=== PATIENT | female | born 1955 | race Hispanic/Latino ===

== ENCOUNTER 2018-06-16 08:43 | Outpatient (CLI) | payer BC ==
--- NOTE | 2018-06-16 11:03 | Mammography Report ---
RIGHT DIGITAL DIAGNOSTIC MAMMOGRAM: 06/16/18 08:43:00 CLINICAL: For clip placement immediately status post stereotactic biopsy of calcifications. COMPARISON:[facility] FINDINGS: A biopsy clip is now identified far posterior at the site of previously identified calcifications. No apparent calcifications remain. IMPRESSION: Successful stereotactic biopsy with removal of calcifications and concordant clip deployment. BI-RADS CATEGORY: 4--Suspicious Pathology pending.
--- NOTE | 2018-06-16 12:31 | Mammography Report ---
STEREOTACTIC VACUUM ASSISTED BIOPSY WITH CLIP PLACEMENT RIGHT BREAST: 06/16/18 08:43:00 CLINICAL: Clustered calcifications and a previous failed attempt at stereotactic biopsy. COMPARISON:Recent [facility] [place] mammogram FINDINGS: Consent for the procedure was obtained. The cluster of far posterior central calcifications was targeted with stereotactic guidance. The skin was prepped with Betadine and anesthetized with 1% lidocaine. 2% lidocaine with epinephrine was injected for deeper anesthesia. 8 gauge Mammotome biopsy was performed from a CC from below approach through a small dermatotomy. Prefire and post-fire images demonstrated satisfactory positioning of the probe. Samples were obtained around the clock face. A specimen radiograph confirmed satisfactory sampling with removal of the cluster of calcifications. A clip was placed at the biopsy site and satisfactory clip deployment was confirmed with an image. The probe was removed and hemostasis was achieved with mild pressure. A sterile dressing was applied. The patient tolerated the procedure well and there were no apparent complications. Two view mammogram demonstrated removal of the calcifications and concordant clip deployment. IMPRESSION: Uncomplicated stereotactic biopsy with clip placement right breast.
== END 2018-06-16 08:44 | disposition home or self-care (01) ==
LOC: SPVWC 08:43
PROVIDERS: ATTEND Surgery
DX: D05.01 Lobular carcinoma in situ of right breast (principal); R92.0 Mammographic microcalcification found on diagnostic imaging of breast
CPT/HCPCS: 19081; 77065; 88305; 88342; 88361; A4648

== ENCOUNTER 2018-07-15 13:45 | Outpatient (CLI) | payer BC ==
--- NOTE | 2018-07-16 11:55 | Magnetic Resonance Report ---
BILATERAL BREAST MRI WITHOUT AND WITH CONTRAST: 07/15/18 13:45:00 CLINICAL: Benign mammary dysplasia of right breast. Status post stereotactic biopsy of the right breast on 06/16/18. 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 COMPARISON:06/16/18 right mammogram. TECHNIQUE: Axial 1.0-mm T1 without, axial high resolution 2.0-mm T2 and axial 1.0-mm dynamic Vibrant high-resolution postcontrast T1 fat saturation sequences on a 1.5 Dahlia magnet. The examination was performed with an 8 channel dedicated [place] breast coil. Post processing with CAD and subtraction was performed on an [employer] workstation. 18.0 cc of Multihance was injected without incident for the contrast portion of the exam. Consent was obtained prior to the administration of the contrast. FINDINGS: Right: Moderate background parenchymal enhancement. No mass or suspicious enhancement. A ring of benign enhancement at the stereotactic biopsy site at 6 o'clock approximately 11 cm from the nipple. The ring measures 1.5 x 1.4 x 0.6 cm. No mass or suspicious enhancement. No suspicious lymph nodes. Left: Mild background parenchymal enhancement. No mass or suspicious enhancement. No suspicious lymph nodes. IMPRESSION: Negative study status post right stereotactic breast biopsy and diagnosis of right LCIS. Recommend routine mammographic screening. BI-RADS 2 - - Benign
== END 2018-07-15 13:46 | disposition home or self-care (01) ==
LOC: SPVIMAG 13:45
PROVIDERS: ATTEND Surgery
DX: R92.8 Other abnormal and inconclusive findings on diagnostic imaging of breast (principal)
CPT/HCPCS: A9577; C8908; 77059

== ENCOUNTER 2019-08-30 09:13 | Outpatient (CLI) | payer BC, OTHER ==
--- NOTE | 2019-08-30 13:18 | Magnetic Resonance Report ---
BILATERAL BREAST MR WITHOUT AND WITH GADOLINIUM INDICATION: LCIS right breast diagnosed by stereotactic biopsy 06/16/2018 COMPARISONS: 07/15/2018 TECHNIQUE: Axial 1.0 mm T1 without, axial high-resolution 2.0 mm T2 and axial 1.0 mm dynamic vibrant high-resolution postcontrast T1 fat saturation sequences on a 1.5 Dahlia magnet. The examination was p erformed with an 8-channel dedicated [place] breast coil. Post-processing with CAD and subtraction was performed on an [employer] workstation. 19.0 cc of MultiHance was injected without incident for the c ontrast portion of the exam. Consent was obtained prior to the administration of the contrast. FINDINGS: RIGHT BREAST: Minimal background parenchymal enhancement. No mass or suspicious enhancement. No suspi cious right axillary or right internal mammary lymph nodes. Several right axillary lymph nodes have b enign morphology. LEFT BREAST: Minimal background parenchymal enhancement. No mass or suspicious enhancement. No suspic ious left axillary or left internal mammary lymph nodes. Several left axillary lymph nodes have benig n morphology. IMPRESSION: Negative study. Recommend routine screening. BI-RADS Category 1: Negative Signer Name: Damon Laboy MD Signed: 08/30/2019 1:14 PM Workstation Name: [id number]
== END 2019-08-30 09:14 | disposition home or self-care (01) ==
LOC: SPVIMAG 09:13
PROVIDERS: ATTEND Surgery
DX: Z85.3 Personal history of malignant neoplasm of breast (principal)
CPT/HCPCS: A9577; C8908; 77049